=== PATIENT | female | born 2000 | race Caucasian/White ===

== ENCOUNTER 2021-09-13 16:13 | Emergency (ER) | payer OTHER ==
[~2021-09-13] VITALS: Ht 157.5 cm; Wt 54.4 kg
[2021-09-13 16:19] VITALS: BP 132/97
--- NOTE | 2021-09-13 16:29 | NUR ---
PT PLACED ON 5150 HOLD BY [place] FOR DANGER TO SELF. ORIGINAL 5150 FORM IN CHART.
[2021-09-13] MEDS ORDERED: diphenhydrAMINE 50 MG/ML VIAL IM ONE (16:40)
[2021-09-13] MEDS ORDERED: HALOPERIDOL IM 5 MG/ML VIAL IM ONE (16:40)
[2021-09-13] MEDS ORDERED: LORazepam 2 MG/ML VIAL IM/IVP ONE (16:40)
[2021-09-13] MEDS ORDERED: LORazepam 2 MG/ML VIAL ONE (16:42)
--- NOTE | 2021-09-13 16:45 | NUR ---
KATIE SALINAS AND KATIE YORK COLLECTED AND WALKED OVER TO LAB BY EMT LE
--- NOTE | 2021-09-13 17:00 | NUR ---
pt [facility] on 5150 hold. pts sister called pd for wellness check d/t pt not answering phone for multiple days. pt hx of schizophrenia, depression and bipolar and has been non compliant with medication. per ems pt was combative on scene and arrived in restraints. pt with flight of ideas and flat affect. room secured. pt does not contract for safety.
--- NOTE | 2021-09-13 17:30 | NUR ---
LAB AT BEDSIDE
[2021-09-13 17:34] LABS: BASOPHILS % (AUTO) 0.3 % (0.0-2.0); EOSINOPHILS % (AUTO) 0.2 % (0.0-4.0); HEMATOCRIT 39.5 % (36-48); HEMOGLOBIN 13.8 g/dL (12.0-16.0); LYMPHOCYTES # (AUTO) 1.5 K/uL (2.5-16.5); LYMPHOCYTES % (AUTO) 14.1 % (20.5-51.1); MEAN CORPUSCULAR HEMOGLOBIN 30 pg (27-31); MEAN CORPUSCULAR HGB CONC 35 g/dL (33-37); MEAN CORPUSCULAR VOLUME 85.6 fL (80-94); MONOCYTES # (AUTO) 0.7 K/uL (0.8-1.0); MONOCYTES % (AUTO) 6.4 % (1.7-9.3); NEUTROPHILS # (AUTO) 8.4 K/uL (1.8-7.7); PLATELET COUNT (AUTO) 282 K/uL (140-450); RED BLOOD CELL COUNT(AUTO) 4.61 MIL/uL (4.20-5.40); RED CELL DISTRIBUTION WIDTH 13.1 % (11.6-13.7); WHITE BLOOD COUNT (AUTO) 10.6 K/uL (4.8-10.8)
[2021-09-13 18:12] LABS: ALBUMIN 4.5 g/dL (3.4-5.0); ANION GAP 14.2 (8-16); ASPARTATE AMINOTRANSFERASE 13 U/L (15-37); CARBON DIOXIDE 23.5 mmol/L (21-32); CHLORIDE 101 mmol/L (98-107); CREATININE 0.9 mg/dL (0.6-1.3); GFR ARICAN-AMERICAN 102 mL/min (>90); GLUCOSE 105 mg/dL (74-106); POTASSIUM 3.7 mmol/L (3.5-5.1); SODIUM SERUM 135 mmol/L (136-145); THYROID STIMULATING HORMONE 0.86 uIU/mL (0.34-3.74); TOTAL BILIRUBIN 1.4 mg/dL (0.0-1.0); UREA NITROGEN, BLOOD 16 mg/dL (7-18)
[2021-09-13 18:17] LABS: ACETAMINOPHEN < 0.5 ug/ml (10-30); SALICYLATE < 2.8 mg/dL (2.8-20.0)
--- NOTE | 2021-09-13 18:59 | NUR ---
pt asleep but easily arousable. 99% ra. nad. safety maintained
--- NOTE | 2021-09-13 21:13 | NUR ---
PT QUIETLY SLEEPING
--- NOTE | 2021-09-13 23:01 | NUR ---
PT SLEEPING. X2 SIDE RAILS UP FOR SAFETY
--- NOTE | 2021-09-14 01:05 | NUR ---
PT LIGHTLY SLEEPING. SHE AROUSED FOR FEW MOMENTS AND WENT BACK TO SLEEP .
--- NOTE | 2021-09-14 05:28 | NUR ---
TRIED TO TAKE VITALS. PT YELLING AND SCREAMING. "I DONT KNOW WHAT A COMPUTER IS, HELP ME HELP ME " PT WAS AGITATED AND FRANTIC.
--- NOTE | 2021-09-14 07:30 | NUR ---
received pt in [facility] asleep but easily arousable. remains on 5150 hold. medically cleared. will continue to monitor.
--- NOTE | 2021-09-14 08:30 | NUR ---
pt became agitated got out of bed acting aggressive with staff, assited back to [facility] medicated per order.
[2021-09-14] MEDS ORDERED: ZIPRASIDONE MESYLATE 20 MG/ML VIAL IM ONE (08:35)
[2021-09-14] MEDS ORDERED: WATER STERILE 10 ML MC ONE (08:40)
--- NOTE | 2021-09-14 09:44 | NUR ---
Packet faxed to: [facility]
--- NOTE | 2021-09-14 10:45 | NUR ---
Patient ambulated to restroom. Placed back onto bed. Linens replaced. Chucks in place.
--- NOTE | 2021-09-14 11:19 | NUR ---
Updated facesheet received. Packet fax[facility]: [facility] [place]
--- NOTE | 2021-09-14 11:47 | NUR ---
pt to be tx to [facility], amr eta 1215pm for tx
--- NOTE | 2021-09-14 12:10 | NUR ---
[facility] here for tx to [facility], report given to examining chair assembler at bedside. pt stable for tx
--- NOTE | 2021-09-14 12:10 | NUR ---
Patient to be transferred to [facility]. Is being transferred due to behavioral psychiatric care. Receiving facility has accepting physician and available space. ER physician has signed transfer form. Patient or responsible constitution party has agreed to transfer and signed form. Patient belongings inventoried and will be sent with patient. Copy of nursing notes, lab reports, EKG, Physicians Orders and X-rays to be sent with patient. Report called to Lisa at receiving facility. [facility] ambulance here at bedside for tx.
[2021-09-14 12:14] VITALS: BP 105/65
== END 2021-09-14 12:14 | disposition psychiatric hospital, planned readmission (93) ==
LOC: MED 16:13
DX: F29 Unspecified psychosis not due to a substance or known physiological condition (principal); Z20.822 Contact with and (suspected) exposure to COVID-19; R45.1 Restlessness and agitation; F20.9 Schizophrenia, unspecified
CPT/HCPCS: 36415; 80053; 83735; 84443; 84702; 85025; 87426; 93005; 96372; 99285; G0480; G0482; J1200; J1630; J2060; J3486; U0003